=== PATIENT | male | born 1960 | race Caucasian/White ===

== ENCOUNTER → 2016-10-10 | Outpatient (CLI) | payer OTHER ==
[~2016-10-10] MED LIST: GADAVIST IV PRN
--- NOTE | 2016-10-10 09:13 | DIAGNOSTIC IMAGING REPORT ---
MRI OF THE BRAIN COMBO INTERNAL AUDITORY CANAL PROTOCOL CLINICAL HISTORY: Right-sided hearing loss. COMPARISON STUDY: No priors. TECHNIQUE: MRI of the brain was performed utilizing various T1 and T2-weighted sequences in the axial, sagittal, and coronal planes. Contrast-enhanced sequences were acquired following the administration of 11 cc of Gadavist. Additional high-resolution imaging through the skull base was performed both pre and postcontrast. The examination is significantly degraded by open MRI technique. FINDINGS: Brain parenchyma: There is mild subcortical and periventricular microangiopathic change. There is no hemorrhage or mass effect. There is no restricted diffusion to suggest acute ischemia. No enhancing mass lesion is identified on the postcontrast images. Jamison-white matter differentiation is preserved. No extra-axial fluid collection is seen. The cerebellar tonsils are normal in configuration. Ventricles, sulci, and cisterns: Normal in configuration. Internal auditory canals: There is no mass identified in the cerebellopontine angle bilaterally. No mass lesion or abnormal enhancement is seen along the course of the internal auditory canals. The middle ear structures are normal as visualized. Pituitary and sella: Unremarkable. Intracranial vasculature: Normal flow voids are maintained at the skull base. Orbits: The bony orbits are grossly intact. Orbital contents are normal in appearance. Sinuses and mastoids: There is a large right mastoid effusion. The left mastoid air cells are clear. Trace mucosal thickening is seen within the maxillary antra. The remaining paranasal sinuses are clear. Calvarium: Unremarkable. Cervical cord: Partially visualized cervical spinal cord is normal in morphology and signal intensity. IMPRESSION: 1. No acute intracranial abnormality. 2. Unremarkable MRI assessment of the internal auditory canals. 3. Large right mastoid effusion. Electronically signed by: Josef Jack M.D. 10/10/2016 9:11 AM Dictated Date/Time: 10/10/2016 9:07 AM
== END | disposition home or self-care (01) ==
LOC: C.OPENMRI 07:37
PROVIDERS: ATTEND Hospitalist
DX: H91.91 Unspecified hearing loss, right ear (principal)